=== PATIENT | female | born 1930 | race Caucasian/White ===

== ENCOUNTER 2017-10-21 15:48 | Inpatient (IN) | payer OTHER, MEDICARE ==
[~2017-10-21] VITALS: Ht 157.5 cm; Wt 59.0 kg
[~2017-10-21 15:48] MED LIST: CALC500C17 PO; ISOS10TA9 PO; LEVO0.118 PO; LISI2.5T12 PO; MAGN200T5 PO; METF500T PO; METO25TE2 PO; SIMV20TA1 PO
[2017-10-21 16:17] VITALS: BP 156/75
--- NOTE | 2017-10-21 16:26 | NUR ---
PT AMBULATES TO BED 2
--- NOTE | 2017-10-21 16:26 | NUR ---
87 YO F BIB FAMILY FOLLOWING PCP APPOINTMENT RELATED TO PRE-OP. DR GOMEZ SENT PT TO ER TO BE ADMITTED OVERNIGHT R/T GALLSTONES. PT PAIN 10/10. ABD SOFT, TENDER. RR EVEN AND UNLABORED. LUNG SOUNDS BILATERALLY CLEAR AT THIS TIME. GCS 15. PT A&O X 4. CMS INTACT. PT REPORTS APPETITE CHANGES. DENIES FEVER/CHILLS, DENIES N/V/D. ER MD DOBSON NOTIFIED. PT NEEDS MET. SAFETY PRECAUTIONS IN PLACE. WILL CONTINUE TO MONITOR.
[2017-10-21] MEDS ORDERED: NACL 0.9% 1,000 ML IV SCH (17:08)
[2017-10-21] MEDS ORDERED: MORPHINE SULFATE 2 MG/ML SYR IVP ONE (17:10)
[2017-10-21] MEDS ORDERED: ONDANSETRON 4 MG/2 ML VIAL IVP ONE (17:10)
--- NOTE | 2017-10-21 17:33 | NUR ---
ULTRASOUND AND LAB AT BEDSIDE AT THIS TIME.
--- NOTE | 2017-10-21 17:37 | NUR ---
LAB DONE AT BEDSIDE AT THIS TIME.
--- NOTE | 2017-10-21 17:38 | NUR ---
ULTRASOUND LEAVING BEDSIDE AT THIS TIME.
[2017-10-21 17:42] LABS: BASOPHILS # (AUTO) 0.1 K/uL (0.00-0.22); BASOPHILS % (AUTO) 0.8 % (0.0-2.0); EOSINOPHILS # (AUTO) 0.2 K/uL (0-0.4); EOSINOPHILS % (AUTO) 2.1 % (0.0-4.0); HEMATOCRIT 34.5 % (36-48); HEMOGLOBIN 11.3 g/dL (12.0-16.0); LYMPHOCYTES # (AUTO) 1.9 K/uL (2.5-16.5); LYMPHOCYTES % (AUTO) 19.1 % (20.5-51.1); MEAN CORPUSCULAR HEMOGLOBIN 29 pg (27-31); MEAN CORPUSCULAR HGB CONC 33 g/dL (33-37); MEAN CORPUSCULAR VOLUME 89.9 fL (80-94); MONOCYTES # (AUTO) 0.6 K/uL (0.8-1.0); MONOCYTES % (AUTO) 6.1 % (1.7-9.3); NEUTROPHILS # (AUTO) 7.2 K/uL (1.8-7.7); NEUTROPHILS % (AUTO) 71.9 % (42.2-75.2); PLATELET COUNT (AUTO) 304 K/uL (140-450); RED BLOOD CELL COUNT(AUTO) 3.84 MIL/uL (4.20-5.40); RED CELL DISTRIBUTION WIDTH 13.3 % (11.6-13.7)
[2017-10-21 17:57] LABS: ANION GAP 12.7 (8-16); CARBON DIOXIDE 27.5 mmol/L (21-32); CHLORIDE 105 mmol/L (98-107); CREATININE 0.9 mg/dL (0.6-1.3); GLUCOSE 123 mg/dL (74-106); POTASSIUM 4.2 mmol/L (3.5-5.1); SODIUM SERUM 141 mmol/L (136-145); UREA NITROGEN, BLOOD 22 mg/dL (7-18)
[2017-10-21 18:03] LABS: ALBUMIN 3.2 g/dL (3.4-5.0); ASPARTATE AMINOTRANSFERASE 15 U/L (15-37); TOTAL BILIRUBIN 0.4 mg/dL (0.0-1.0)
[2017-10-21] MEDS ORDERED: MORPHINE SULFATE 4 MG/ML SYR ONE (18:17)
[2017-10-21 18:29] LABS: PROTHROMBIN TIME 10.3 secs (10.8-13.4)
[2017-10-21] MEDS ORDERED: ONDANSETRON 4 MG/2 ML VIAL IVP PRN (18:35)
[2017-10-21] MEDS ORDERED: ACETAMINOPHEN 325 MG TAB PO PRN (18:35)
[2017-10-21] MEDS ORDERED: HYDROcodone/APAP 7.5/325 MG 1 TAB PO PRN (18:35)
[2017-10-21 19:20] VITALS: BP 145/64
--- NOTE | 2017-10-21 19:20 | NUR ---
RECEIVED PT TO THE FLOOR FROM ER ON GURNEY TRANSPORT FOR CONTINUITY OF CARE. PT AWAKE AO X4. NO SOB. NO S/S OF DISTRESS. ON ROOM AIR. IV NOTED RIGHT HAND 22 G. HEP LOCK. URINALYSIS AND MRSA SWAB COLLECTED AND SEND TO LAB. NO PAIN AT THIS TIME. WILL CONTINUE TO MONITOR. VITALS WITHIN NORMAL LIMITS.
--- NOTE | 2017-10-21 19:20 | NUR ---
Pt transferred to Tele via .
--- NOTE | 2017-10-21 19:26 | NUR ---
Patient will be admitted to care of PACO Crain. Admited to Tele. Will go to room 124B. Belongings list completed. Pt tolerated transition well.
--- NOTE | 2017-10-21 20:00 | NUR ---
PT DENIES PAIN AT THIS TIME. EDUCATED HER ON PAIN ASSESSMENT, ORIENTED TO CALL LIGHT. ALSO POSTED A SIGN FOR NPO AND HARD AT HEARING FROM LEFT EAR. WILL CONTINUE TO MONITOR
--- NOTE | 2017-10-21 20:00 | NUR ---
CT TAKEN PT TO DO STUDY. OFF THE FLOOR.
[2017-10-21 20:07] LABS: CHOL/HDL RATIO 4.2 (1-4.5); FREE T4 (FREE THYROXINE) 1.06 ng/dL (0.76-1.46); MAGNESIUM 2.2 mg/dL (1.8-2.4); PHOSPHORUS 3.7 mg/dL (2.5-4.9); THYROID STIMULATING HORMONE 0.4 uIU/mL (0.34-3.74)
--- NOTE | 2017-10-21 20:22 | NUR ---
JIMMY FROM [facility] CALLED AND ASKED TO GIVE HER SOME INFORMATION :VS,RD RESULT,PT,S MEDS AND CC.ALL GIVEN TO HER.
[2017-10-21] MEDS: NACL 0.45% 1,000 ML IV SCH (20:30)
--- NOTE | 2017-10-21 20:57 | NUR ---
PER DR GOMEZ CT HAS TO BE DONE TONIGHT. NM PT HAS TO BE NPO AND NO OPIATES. PER SARAH IN [facility].
--- NOTE | 2017-10-21 21:04 | NUR ---
ARIADNA FROM [facility] MED. PT NPO AND NO OPIATES. PT RECEIVING NUCLEAR MED AT 0100 10/22/17 AND ARIADNA WILL BE HERE AT [address] GOMEZ AWARE. WILL CONTINUE TO MONITOR. ALSO WILL LET SHYANNE LEWIS INFORM.
[2017-10-21] MEDS ORDERED: LEVOFLOXACIN 500 MG/D5W PREMIX 100 ML IV SCH (21:05)
[2017-10-21 21:13] LABS: BILIRUBIN,URINE NEGATIVE (NEGATIVE); BLOOD, URINE NEGATIVE (NEGATIVE); COLOR,URINE YELLOW (YELLOW); LEUKOCYTE ESTERASE ,URINE NEGATIVE (NEGATIVE); NITRITE, URINE NEGATIVE (NEGATIVE); PH,URINE 8.5 (5.0-9.0); UGLUCOSE NEGATIVE (NEGATIVE)
[2017-10-21 21:18] LABS: BARBITURATE, URINE NEG. ng/ml (NEG <=200); BENZODIAZEPINE, URINE NEG. ng/mL (NEG <=200); CANNABINOID, URINE NEG. ng/mL (NEG <=50); COCAINE, URINE NEG. ng/mL (NEG <=300); OPIATE, URINE NEG. ng/mL (NEG <=2000); PHENCYCLIDINE SCREEN,URINE NEG. ng/mL (NEG <=25)
[2017-10-21 21:24] LABS: APPEARANCE,URINE CLEAR (CLEAR)
[2017-10-21] MEDS: DOCUSATE SODIUM 100 MG GELCAP PO SCH (21:50)
[2017-10-21] MEDS: metFORMIN 500 MG TAB PO SCH (21:52)
--- NOTE | 2017-10-21 23:24 | NUR ---
ASSESSED PT. PT SLEEPING. NO SOB. NO S/S OF DISTRESS. ON ROOM AIR. WILL CONTINUE TO MONITOR.
[2017-10-21 23:56] VITALS: BP 103/43
--- NOTE | 2017-10-22 00:55 | NUR ---
CLIVE CAME BY TO CATALYST SUPERVISOR PT FOR HIDA SCAN. PT OFF THE FLOOR. AND HIDA SCAN TECH ADVISED ME TO BE READY WITH MORPHINE 2MG IN 30 MIN.
[2017-10-22] MEDS ORDERED: MORPHINE SULFATE 4 MG/ML SYR IVP PRN (01:05)
[2017-10-22 04:00] VITALS: BP 103/43
--- NOTE | 2017-10-22 04:46 | NUR ---
PT SLEEPING . NO PAIN NOTED AT THIS TIME WILL CONTINUE TO MONITOR. NO SOB. NO S/S OF DISTRESS. WILL CONTINUE TO MONITOR.
[2017-10-22] MEDS: LEVOTHYROXINE 0.112 MG TAB PO SCH (05:43)
[2017-10-22 06:25] LABS: BASOPHILS # (AUTO) 0.1 K/uL (0.00-0.22); BASOPHILS % (AUTO) 0.7 % (0.0-2.0); EOSINOPHILS # (AUTO) 0.2 K/uL (0-0.4); EOSINOPHILS % (AUTO) 2.9 % (0.0-4.0); HEMATOCRIT 29.4 % (36-48); HEMOGLOBIN 9.7 g/dL (12.0-16.0); LYMPHOCYTES # (AUTO) 2.1 K/uL (2.5-16.5); MEAN CORPUSCULAR HEMOGLOBIN 30 pg (27-31); MEAN CORPUSCULAR HGB CONC 33 g/dL (33-37); MEAN CORPUSCULAR VOLUME 90.3 fL (80-94); MONOCYTES # (AUTO) 0.7 K/uL (0.8-1.0); NEUTROPHILS # (AUTO) 5.1 K/uL (1.8-7.7); NEUTROPHILS % (AUTO) 62.4 % (42.2-75.2); PLATELET COUNT (AUTO) 242 K/uL (140-450); RED BLOOD CELL COUNT(AUTO) 3.25 MIL/uL (4.20-5.40); RED CELL DISTRIBUTION WIDTH 13.4 % (11.6-13.7); WHITE BLOOD COUNT (AUTO) 8.2 K/uL (4.8-10.8)
[2017-10-22 06:59] LABS: ANION GAP 7.2 (8-16); CARBON DIOXIDE 28.5 mmol/L (21-32); CHLORIDE 108 mmol/L (98-107); CREATININE 0.8 mg/dL (0.6-1.3); GLUCOSE 110 mg/dL (74-106); POTASSIUM 4.7 mmol/L (3.5-5.1); SODIUM SERUM 139 mmol/L (136-145); UREA NITROGEN, BLOOD 16 mg/dL (7-18)
[2017-10-22 07:04] LABS: PHOSPHORUS 3.4 mg/dL (2.5-4.9)
--- NOTE | 2017-10-22 07:29 | NUR ---
GAVE REPORT TO MARIA DOLORES DAY SHIFT NURSE FOR CONTINUITY OF CARE.
--- NOTE | 2017-10-22 07:35 | NUR ---
RECEIVED REPORT FROM BODY COMPONENT ENGINEER NURSE, PT IS RESTING IN BED, AAOX4, AMBULATES WITH ASSIST, IV IS ON THE RIGHT HAND, PATENT,INTACT, FLUSHING WELL, NO S/S OF RESPIRATORY DISTRESS OR DISCOMFORT NOTED, SKIN IS INTACT, DISCUSSED PLAN OF CARE WITH PT, PT VERBALIZED UNDERSTANDING, CALL LIGHT IS WITHIN REACH, WILL CONTINUE TO MONITOR.
[2017-10-22 08:00] VITALS: BP 121/49
[2017-10-22] MEDS: metFORMIN 500 MG TAB PO SCH (08:44)
[2017-10-22] MEDS: SIMVASTATIN 20 MG TAB PO SCH (08:44)
[2017-10-22] MEDS: DOCUSATE SODIUM 100 MG GELCAP PO SCH ×2 (08:44→21:23)
[2017-10-22] MEDS: ISOSORBIDE DINITRATE 10 MG TAB PO SCH (08:45)
[2017-10-22] MEDS: METOPROLOL SUCCINATE 50 MG TABER PO SCH (08:53)
[2017-10-22] MEDS: LISINOPRIL 5 MG TAB PO SCH (08:53)
[2017-10-22] MEDS: MAGNESIUM OXIDE 400 MG TAB PO SCH (08:53)
[2017-10-22] MEDS ORDERED: CALCIUM CARBONATE 500 MG TAB.CHEW PO SCH (09:00)
[2017-10-22] MEDS: NACL 0.45% 1,000 ML IV SCH (09:00)
--- NOTE | 2017-10-22 11:15 | NUR ---
SPOKE TO DR. STAFFORD, I ASKED HER IF SHE COULD PUT IN AN ORDER FOR ACCU CHECK. PER DR. STAFFORD SHE WILL PUT IT IN, DISCONTINUE THE METFORMIN AND START PT ON FULL LIQUID DIET. PER DR. STAFFORD SURGERY MOST LIKELY WILL NOT BE DONE TODAY.
--- NOTE | 2017-10-22 11:17 | NUR ---
FAXED INITIAL REVIEW TO [facility] [phone] PHONE [phone] [id number] NITA
--- NOTE | 2017-10-22 11:30 | NUR ---
RECEIVED A PHONE CALL FROM PATIENT'S MOM CARINA, SHE SAID SHE WAS RETURNING KASSIE'S MESSAGE. I LET HER KNOW SHE HAD CALLED HER TO ASK HER IF IT WOULD BE OKAY FOR THE PATIENT TO HAVE A CT-SCAN OF THE HEAD DONE. PER CARINA IT IS OKAY. HER PHONE NUMBER IN CASE THERE ARE ANY QUESTIONS IS [phone]. Addendum: 10/22/17 at 1148 by Marizol Saleem RN WRONG PT ENTRY.
--- NOTE | 2017-10-22 11:42 | NUR ---
PATIENT HAS BEEN SCREENED AND CATEGORIZED MODERATE NUTRITION RISK. PATIENT WILL BE SEEN WITHIN 3-5 DAYS OF ADMISSION. 10/24/17 - 10/26/[address]
[2017-10-22 12:00] VITALS: BP 108/42
--- NOTE | 2017-10-22 12:30 | NUR ---
DR. GOMEZ IN PATIENT'S ROOM SPEAKING WITH PT AND PT'S DAUGHTER (CARISSA).
--- NOTE | 2017-10-22 14:25 | NUR ---
PT RESTING IN BED, PATIENT'S DAUGHTER IS AT BEDSIDE, CALL LIGHT WITHIN REACH.
[2017-10-22 16:00] VITALS: BP 97/49
--- NOTE | 2017-10-22 16:45 | NUR ---
PATIENT SLEEPING IN BED, PATIENT'S DAUGHTER IS AT BEDSIDE.
--- NOTE | 2017-10-22 19:43 | NUR ---
ENDORSED PT TO REST ROOM ATTENDANT NURSE FOR CONTINUITY OF CARE. PT IS STABLE AT THIS TIME, FAMILY IS AT BEDSIDE.
--- NOTE | 2017-10-22 19:44 | NUR ---
RECEIVED PT FROM MARIA DOLORES RN PT ZAMBIAN SPEAKER AAOX4 AMBULATORY WITH SHELTER DIRECTOR IV ON RT HAND INFUSING WELL DENIES ANYABD PAIN , RELTIVES AT BED SIDE INITIAL ASSESSMENT DONE
[2017-10-22 20:00] VITALS: BP 125/45
[2017-10-22] MEDS: LEVOFLOXACIN 250 MG/D5 PREMIX 50 ML IV SCH (21:23)
--- NOTE | 2017-10-22 22:00 | NUR ---
PT IS ASSISTED TOTHE RESTROOM VOIDING WELLDENIES ANY PAIN
[2017-10-23] VITALS: BP 126/41
[2017-10-23] MEDS: NACL 0.45% 1,000 ML IV SCH ×3 (01:00→12:38)
--- NOTE | 2017-10-23 01:00 | NUR ---
SLEEPING WELL IV ONRT HAND INFUSING WELL PT IS NPO FOR TISHA BUENO THIS AM
--- NOTE | 2017-10-23 04:00 | NUR ---
PT HAS BEEN MONITORING CLOSE, AMBULATES TO THE RESTROOM DENIES ANY PAIN IV ON RT HAND INFUSING WELL
[2017-10-23 05:17] LABS: BASOPHILS % (AUTO) 0.6 % (0.0-2.0); EOSINOPHILS # (AUTO) 0.2 K/uL (0-0.4); EOSINOPHILS % (AUTO) 3.4 % (0.0-4.0); HEMATOCRIT 32.3 % (36-48); HEMOGLOBIN 10.4 g/dL (12.0-16.0); LYMPHOCYTES # (AUTO) 2.2 K/uL (2.5-16.5); LYMPHOCYTES % (AUTO) 31.4 % (20.5-51.1); MEAN CORPUSCULAR HEMOGLOBIN 29 pg (27-31); MEAN CORPUSCULAR HGB CONC 32 g/dL (33-37); MEAN CORPUSCULAR VOLUME 90.9 fL (80-94); MONOCYTES # (AUTO) 0.6 K/uL (0.8-1.0); MONOCYTES % (AUTO) 8.4 % (1.7-9.3); NEUTROPHILS # (AUTO) 3.9 K/uL (1.8-7.7); NEUTROPHILS % (AUTO) 56.2 % (42.2-75.2); PLATELET COUNT (AUTO) 257 K/uL (140-450); RED BLOOD CELL COUNT(AUTO) 3.55 MIL/uL (4.20-5.40); RED CELL DISTRIBUTION WIDTH 13.3 % (11.6-13.7)
[2017-10-23 05:56] LABS: ANION GAP 10.4 (8-16); CARBON DIOXIDE 27.6 mmol/L (21-32); CHLORIDE 107 mmol/L (98-107); CREATININE 0.9 mg/dL (0.6-1.3); GLUCOSE 106 mg/dL (74-106); SODIUM SERUM 141 mmol/L (136-145); UREA NITROGEN, BLOOD 10 mg/dL (7-18)
[2017-10-23] MEDS: LEVOTHYROXINE 0.112 MG TAB PO SCH (06:30)
--- NOTE | 2017-10-23 06:42 | NUR ---
PT AWAKE MORNING CARE DONE PT COOPERATIVE NPO FOR LAP MYLES THIS AM DENIES ANY PAIN AT THIS TIME, CONSENT SIGNED, ANDT SURGICAL CHECK LIST AND TICKET TO RIDE READY
--- NOTE | 2017-10-23 07:20 | NUR ---
RECEIVED BEDSIDE REPORT FROM EQUIPMENT MANAGER NURSE. PATIENT IS AWAKE. ALERT AND ORIENTEDX4. SOMALI SPEAKER. NO SIGNS OF DISTRESS ON ROOM AIR. NO COMPLAINTS AT THIS TIME. IV ON R HAND 22G INFUSING 0.45 SODIUM CHLORIDE AT 80ML/HR. IV IS CLEAN, DRY AND INTACT. AMBULATE W ASSISTANCE. SKIN IS INTACT. ALL PAPER WORK AND CHECKLISTS READY FOR SURGERY. BED IN LOW POSITION. CALL LIGHT WITHIN REACH. WILL CONTINUE TO MONITOR THE PATIENT.
[2017-10-23 08:00] VITALS: BP 139/54
--- NOTE | 2017-10-23 08:37 | NUR ---
FAXED NILTONT REVIEW TO [facility] [phone] PHONE [phone] X NITA [id number]
--- NOTE | 2017-10-23 08:39 | NUR ---
WILL HOLD ALL MEDS FOR SURGERY. FAMILY IS AT BEDSIDE. NO COMPLAINTS AT THIS TIME. WILL CONTINUE TO MONITOR THE PATIENT.
[2017-10-23] MEDS: CALCIUM CARB 600 MG TAB PO SCH (08:41)
[2017-10-23] MEDS: DOCUSATE SODIUM 100 MG GELCAP PO SCH ×2 (08:41→21:17)
[2017-10-23] MEDS: MAGNESIUM OXIDE 400 MG TAB PO SCH (08:42)
[2017-10-23] MEDS: SIMVASTATIN 20 MG TAB PO SCH (08:42)
[2017-10-23] MEDS: LISINOPRIL 5 MG TAB PO SCH (08:42)
[2017-10-23] MEDS: ISOSORBIDE DINITRATE 10 MG TAB PO SCH (08:42)
[2017-10-23] MEDS: METOPROLOL SUCCINATE 50 MG TABER PO SCH (08:42)
--- NOTE | 2017-10-23 09:20 | NUR ---
PATIENT PICKED UP BY OR NURSE. PATIENT IS IN STABLE CONDITION. WILL AWAIT PATIENT TO COME BACK.
[2017-10-23] MEDS: BUPIVACAINE-MPF 0.25% 30 ML VIAL INJ ONE ×2 (09:41→11:00)
[2017-10-23] MEDS ORDERED: DESFLURANE 240 ML BTL INH ONE (09:46)
[2017-10-23] MEDS ORDERED: ONDANSETRON 4 MG/2 ML VIAL ONE (09:46)
[2017-10-23] MEDS ORDERED: NEOSTIGMINE 1:1000 10 MG/10 ML VIAL ONE (09:46)
[2017-10-23] MEDS ORDERED: hydrALAZINE 20 MG/ML VIAL ONE (09:46)
[2017-10-23] MEDS ORDERED: PROPOFOL 200 MG/20 ML VIAL IV ONE (09:46)
[2017-10-23] MEDS ORDERED: ROCURONIUM 50 MG/5 ML VIAL IV ONE (09:46)
[2017-10-23] MEDS ORDERED: GLYCOPYRROLATE 0.2 MG/ML VIAL ONE (09:46)
[2017-10-23] MEDS ORDERED: SUCCINYLCHOLINE CHLORIDE 200 MG/10 ML VIAL IVP ONE (09:46)
[2017-10-23] MEDS ORDERED: DEXAMETHASONE 4 MG/ML VIAL ONE (09:46)
[2017-10-23] MEDS ORDERED: fentaNYL 0.05 MG/ML VIAL ONE (10:11)
[2017-10-23] MEDS ORDERED: MEPERIDINE 25 MG/ML SYR ONE ×2 (10:11→11:53)
[2017-10-23] MEDS ORDERED: MIDAZOLAM 2 MG/2 ML VIAL ONE (10:11)
[2017-10-23] MEDS ORDERED: ceFAZolin 1,000 MG VIAL ONE (10:36)
[2017-10-23] MEDS ORDERED: MIDAZOLAM 2 MG/2 ML VIAL IVP ONE (10:55)
[2017-10-23] MEDS ORDERED: MEPERIDINE 25 MG/ML SYR IVP PRN ×2 (10:55)
[2017-10-23] MEDS ORDERED: METOCLOPRAMIDE 10 MG/2 ML INJ VIAL IVP PRN (10:55)
[2017-10-23] MEDS ORDERED: MORPHINE SULFATE 4 MG/ML SYR IVP PRN (11:15)
[2017-10-23] MEDS ORDERED: ACETAMINOPHEN 325 MG TAB PO PRN (11:15)
[2017-10-23] MEDS ORDERED: ONDANSETRON 4 MG/2 ML VIAL IV PRN (11:15)
[2017-10-23] MEDS ORDERED: MORPHINE SULFATE 4 MG/ML SYR IV PRN (11:15)
[2017-10-23] MEDS ORDERED: HYDROcodone/APAP 5/325 MG 1 TAB TAB PO PRN (11:15)
[2017-10-23 12:10] VITALS: BP 119/52
--- NOTE | 2017-10-23 12:10 | NUR ---
PATIENT IS BACK FROM SURGERY. RECEIVED REPORT FROM OR NURSE, SASHA. PATIENT IS IN STABLE CONDITION. VITALS ARE STABLE. NO SIGNS OF DISTRESS ON ROOM AIR. WILL CHECK Q15 MINS FOR AN HOUR. Q30 MINS AN HOUR AFTER, AND ONCE AN HOUR AFTER. 4 ABDOMINAL INCISIONS. BANDAGES ARE PRESENT. PATIENT HAS NO COMPLAINTS AT THIS TIME.
--- NOTE | 2017-10-23 14:00 | NUR ---
ALL VITALS WERE STABLE AFTER SURGERY. FAMILY AT BEDSIDE. NO COMPLAINTS AT THIS TIME. BED IN LOW POSITION, CALL LIGHT WITHIN REACH. WILL CONTINUE TO MONITOR THE PATIENT.
[2017-10-23 16:00] VITALS: BP 136/67
--- NOTE | 2017-10-23 16:00 | NUR ---
VITALS ARE STABLE. FAMILY AT BEDSIDE. PATIENT IS SLEEPING, NO DISTRESS ON ROOM AIR. NO COMPLAINTS AT THIS TIME. BED IN LOW POSITION. CALL LIGHT WITHIN REACH.
--- NOTE | 2017-10-23 19:25 | NUR ---
GAVE BEDSIDE REPORT TO GRAPHIC EDITOR NURSE. PATIENT IS IN STABLE CONDITION.
--- NOTE | 2017-10-23 19:27 | NUR ---
RECEIVED PT FROM RENARD RN PT CHINESE SPEAKER AAOX4 S/P LAP MYLES ABD DRESSING DRY AND INTACT IV ON RT HAND INFUSING WELL
[2017-10-23 20:00] VITALS: BP 153/57
[2017-10-23] MEDS: LEVOFLOXACIN 250 MG/D5 PREMIX 50 ML IV SCH (21:17)
--- NOTE | 2017-10-23 22:00 | NUR ---
PT DENIES ANY PAIN IV ONRT HAND INFUSING WELL PT IS ASSISTED TO THE RESTROOM VOIDING WELL
[2017-10-24] VITALS: BP 128/64
--- NOTE | 2017-10-24 01:51 | NUR ---
PT SLEEPING WELL ON BILATERAL SEQUENTIAL STOCKING NOT SIGNS OF PAIN OR DISCOMFORT
[2017-10-24 04:00] VITALS: BP 118/58
--- NOTE | 2017-10-24 04:00 | NUR ---
SPONGE BATH GIVEN LINEN CHANGED REPOSITIONED NOT DISTRESS NOTED DENIES ANY PAIN IV ON RT HAND INFUSING WELL
[2017-10-24] MEDS: LEVOTHYROXINE 0.112 MG TAB PO SCH (06:18)
[2017-10-24 06:28] LABS: BASOPHILS % (AUTO) 0.3 % (0.0-2.0); EOSINOPHILS % (AUTO) 0.3 % (0.0-4.0); HEMOGLOBIN 10.4 g/dL (12.0-16.0); LYMPHOCYTES # (AUTO) 1.3 K/uL (2.5-16.5); LYMPHOCYTES % (AUTO) 12.6 % (20.5-51.1); MEAN CORPUSCULAR HEMOGLOBIN 30 pg (27-31); MEAN CORPUSCULAR HGB CONC 34 g/dL (33-37); MEAN CORPUSCULAR VOLUME 89.5 fL (80-94); MONOCYTES # (AUTO) 0.7 K/uL (0.8-1.0); MONOCYTES % (AUTO) 6.5 % (1.7-9.3); NEUTROPHILS # (AUTO) 8.6 K/uL (1.8-7.7); NEUTROPHILS % (AUTO) 80.3 % (42.2-75.2); PLATELET COUNT (AUTO) 264 K/uL (140-450); RED BLOOD CELL COUNT(AUTO) 3.47 MIL/uL (4.20-5.40); RED CELL DISTRIBUTION WIDTH 13.1 % (11.6-13.7); WHITE BLOOD COUNT (AUTO) 10.7 K/uL (4.8-10.8)
--- NOTE | 2017-10-24 06:45 | NUR ---
PT REMAIN STABLE ASSISTED TO THE RESTROOM DENIES ANY PAIN PT WILL BE ENDORSED TODAY SHIFT NURSE FOR CONTINUITY OF CARE
[2017-10-24 07:03] LABS: ALBUMIN 2.6 g/dL (3.4-5.0); ASPARTATE AMINOTRANSFERASE 16 U/L (15-37); CARBON DIOXIDE 25.1 mmol/L (21-32); CHLORIDE 107 mmol/L (98-107); CREATININE 0.9 mg/dL (0.6-1.3); GLUCOSE 109 mg/dL (74-106); POTASSIUM 4.1 mmol/L (3.5-5.1); SODIUM SERUM 141 mmol/L (136-145); TOTAL BILIRUBIN 0.6 mg/dL (0.0-1.0); UREA NITROGEN, BLOOD 13 mg/dL (7-18)
--- NOTE | 2017-10-24 07:25 | NUR ---
RECEIVED REPORT FROM AUTOMATIC BOW MAKER MACHINE TENDER RN. PATIENT IS AAOX4, HAS NO SIGNS AND SYMPTOMS OF ACUTE DISTRESS NOTED AT THIS TIME. HAS IV TO THE RIGHT HAND 22G INFUSING 1/2 NS AT 80ML/HR. SITE IS CLEAN, DRY, PATENT AND INTACT. DISCUSSED PLAN OF CARE WITH PATIENT AND SHE VERBALIZED UNDERSTANDING. SHE IS S/P LAP MYLES, INCISION SITES ARE CLEAN AND DRY. BED IN LOWEST POSITION, SIDE RAILS UP X2, CALL LIGHT WITHIN REACH. WILL CONTINUE TO MONITOR.
[2017-10-24] MEDS: DOCUSATE SODIUM 100 MG GELCAP PO SCH (09:00)
[2017-10-24] MEDS: CALCIUM CARB 600 MG TAB PO SCH (09:29)
[2017-10-24] MEDS: SIMVASTATIN 20 MG TAB PO SCH (09:29)
[2017-10-24] MEDS: MAGNESIUM OXIDE 400 MG TAB PO SCH (09:29)
[2017-10-24] MEDS: LISINOPRIL 5 MG TAB PO SCH (09:30)
[2017-10-24] MEDS: ISOSORBIDE DINITRATE 10 MG TAB PO SCH (09:31)
[2017-10-24] MEDS ORDERED: IBUP200S18 PO (11:58)
[2017-10-24] MEDS ORDERED: ACET-9525 PO (11:58)
[2017-10-24] MEDS ORDERED: DOCU-299 PO (11:58)
[2017-10-24] MEDS ORDERED: ONDA4ODT1 SL (11:58)
--- NOTE | 2017-10-24 15:15 | NUR ---
DISCHARGE ORDER IS IN PLACE. GAVE PATIENT INSTRUCTIONS ON WOUND CARE, S/SX OF INFECTION, FOOD EDUCATION. EDUCATED ON WHEN TO SEEK EMERGENCY MEDICAL ATTENTION. PATIENT VERBALIZED UNDERSTANDING. REMOVED IV FROM SITE AND PATIENT TOLERATED WELL. HAS NO SIGNS AND SYMPTOMS OF ACUTE DISTRESS AT THIS TIME. ALL BELONGINGS ARE WITH PATIENT. REMOVED ID BANDS. WILL WALK OUT WITH PATIENT.
--- NOTE | 2017-10-24 15:16 | NUR ---
CM NOTE CONCURENT REVIEW FAXED TO [facility] / FAX# [phone], ATTN: NITA #[phone] [id number]
== END 2017-10-24 15:15 | disposition home or self-care (01) | DRG 263 ==
LOC: MED 15:48 → MTU 18:29
PROVIDERS: ADMIT Family Medicine Sports Medicine; ATTEND Family Medicine Sports Medicine
PROC: 0FT44ZZ Resection of Gallbladder, Percutaneous Endoscopic Approach (ICD-10-PCS; principal; 2017-10-23 09:30)
DX: K80.10 Calculus of gallbladder with chronic cholecystitis without obstruction (principal); N17.0 Acute kidney failure with tubular necrosis; E44.0 Moderate protein-calorie malnutrition; D64.9 Anemia, unspecified; I10 Essential (primary) hypertension; E11.9 Type 2 diabetes mellitus without complications; J44.9 Chronic obstructive pulmonary disease, unspecified; E03.9 Hypothyroidism, unspecified; E78.5 Hyperlipidemia, unspecified; Z90.710 Acquired absence of both cervix and uterus; Z79.899 Other long term (current) drug therapy; Z98.42 Cataract extraction status, left eye; Z98.41 Cataract extraction status, right eye; Z68.23 Body mass index [BMI] 23.0-23.9, adult; K57.30 Diverticulosis of large intestine without perforation or abscess without bleeding; I70.0 Atherosclerosis of aorta; Z79.84 Long term (current) use of oral hypoglycemic drugs
CPT/HCPCS: 36415; 71045; 76705; 78445; 80048; 80053; 80305; 81003; 82150; 82374; 82948; 83036; 83605; 83690; 83735; 83880; 84100; 84439; 84443; 84484; 85025; 85610; 85730; 86886; 86900; 86901; 87040; 87081; 87086; 88304; 93005; 96361; 96374; 96375; 99285; J0330; J0360; J0690; J1100; J1956; J2175; J2250; J2270; J2405; J2704; J2710; J3010; J3490; J7030; Q0092

== ENCOUNTER 2019-02-08 00:13 | Emergency (ER) | payer MEDICARE, OTHER ==
[~2019-02-08] VITALS: Ht 154.9 cm; Wt 61.2 kg
[~2019-02-08 00:13] MED LIST changes: +ACET-9525 PO; +DOCU-299 PO; +IBUP200C97 PO; +ONDA-24 SL
--- NOTE | 2019-02-08 00:13 | NUR ---
PT ABILIO BLS. TAKEN TO BED 6
--- NOTE | 2019-02-08 00:15 | NUR ---
88 YO FEMALE BIBA FOR C/O ABDOMINAL PAIN X2-3 DAYS. PT STATES SHE FEELS CHILLS, HOWEVER PT AFEBRILE 96.8 @ THIS TIME. PT AAOX4 FOLLOWING COMMANDS. LUNGS CLEAR EVEN UNLABORED @ THIS TIME. ABD SOFT NON DISTENDED. DENIES N/V/D. VOIDING APPROPRIATELY. SKIN INTACT. GURNEY LOCKED IN LOWEST POSITION. WILL UPDATE ERMD. PMH: HYPOTHYROID, HTN, DM, HLD ALLERGIES DENIES
[2019-02-08 00:20] VITALS: BP 186/74
--- NOTE | 2019-02-08 00:35 | NUR ---
Dr. Vo examining patient.
[2019-02-08] MEDS ORDERED: NACL 0.9% 1,000 ML IV ONE (00:50)
[2019-02-08] MEDS ORDERED: DICYCLOMINE HCL LIQUID 20 MG, ALUMINUM HYD/MAG/SIMETHICONE 30 ML, LIDOCAINE VISCOUS 2% ... PO ONE ×3 (00:50)
--- NOTE | 2019-02-08 01:01 | NUR ---
X-Ray at bedside.
[2019-02-08 01:20] LABS: BASOPHILS % (AUTO) 0.6 % (0.0-2.0); EOSINOPHILS # (AUTO) 0.2 K/uL (0-0.4); EOSINOPHILS % (AUTO) 2.8 % (0.0-4.0); HEMATOCRIT 38.1 % (36-48); HEMOGLOBIN 12.7 g/dL (12.0-16.0); LYMPHOCYTES # (AUTO) 2.2 K/uL (2.5-16.5); LYMPHOCYTES % (AUTO) 28.7 % (20.5-51.1); MEAN CORPUSCULAR HEMOGLOBIN 31 pg (27-31); MEAN CORPUSCULAR HGB CONC 33 g/dL (33-37); MEAN CORPUSCULAR VOLUME 93.3 fL (80-94); MONOCYTES # (AUTO) 0.4 K/uL (0.8-1.0); MONOCYTES % (AUTO) 5.5 % (1.7-9.3); NEUTROPHILS # (AUTO) 4.8 K/uL (1.8-7.7); NEUTROPHILS % (AUTO) 62.4 % (42.2-75.2); PLATELET COUNT (AUTO) 310 K/uL (140-450); RED BLOOD CELL COUNT(AUTO) 4.08 MIL/uL (4.20-5.40); RED CELL DISTRIBUTION WIDTH 14.3 % (11.6-13.7); WHITE BLOOD COUNT (AUTO) 7.8 K/uL (4.8-10.8)
[2019-02-08 01:37] LABS: CARBON DIOXIDE 30.6 mmol/L (21-32); CHLORIDE 103 mmol/L (98-107); CREATININE 1.5 mg/dL (0.6-1.3); GLUCOSE 130 mg/dL (74-106); POTASSIUM 4.6 mmol/L (3.5-5.1); SODIUM SERUM 139 mmol/L (136-145); UREA NITROGEN, BLOOD 15 mg/dL (7-18)
[2019-02-08 01:43] LABS: ALBUMIN 3.5 g/dL (3.4-5.0); ASPARTATE AMINOTRANSFERASE 23 U/L (15-37); LIPASE 279 U/L (73-393); TOTAL BILIRUBIN 0.4 mg/dL (0.0-1.0)
[2019-02-08 01:56] LABS: CREATINE KINASE MB 1.8 ng/mL (0-3.6)
--- NOTE | 2019-02-08 02:09 | NUR ---
VAG SPECIMEN COLLECTED, LAB TO INDUCTION COORDINATION POWER ENGINEER
[2019-02-08 02:26] LABS: APPEARANCE,URINE CLEAR (CLEAR); BILIRUBIN,URINE NEGATIVE (NEGATIVE); BLOOD, URINE NEGATIVE (NEGATIVE); COLOR,URINE YELLOW (YELLOW); LEUKOCYTE ESTERASE ,URINE NEGATIVE (NEGATIVE); NITRITE, URINE NEGATIVE (NEGATIVE); UGLUCOSE NEGATIVE (NEGATIVE)
[2019-02-08 03:40] VITALS: BP 148/62
--- NOTE | 2019-02-08 03:41 | NUR ---
Patient discharged with v/s stable. Written and verbal after care instructions given and explained. Patient alert, oriented and verbalized understanding of instructions. Ambulatory with steady gait. All questions addressed prior to discharge. ID band removed. Patient advised to follow up with PMD. Rx of VALIUM given. Patient educated on indication of medication including possible reaction and side effects. Opportunity to ask questions provided and answered.
== END 2019-02-08 03:41 | disposition home or self-care (01) ==
LOC: MED 00:13
DX: R10.13 Epigastric pain (principal); R25.2 Cramp and spasm; J44.9 Chronic obstructive pulmonary disease, unspecified; E11.9 Type 2 diabetes mellitus without complications; I10 Essential (primary) hypertension; E03.9 Hypothyroidism, unspecified; Z90.49 Acquired absence of other specified parts of digestive tract; Z79.84 Long term (current) use of oral hypoglycemic drugs; Z79.899 Other long term (current) drug therapy
CPT/HCPCS: 36415; 71045; 80053; 81003; 82550; 82553; 83690; 84484; 85025; 93005; 99284; J7030; Q0092